=== PATIENT | female | born 1950 | race Two or more races ===

== ENCOUNTER 2018-05-01 06:00 | Day surgery (SDC) | payer OTHER ==
[~2018-05-01 06:00] MED LIST: DESILAN PO; JANUVIA100 MG PO; JARDIANCE PO; LYRICA300 MG PO; PNEU16DI2; SYNTTHROID PO
== END 2018-05-01 11:35 | disposition home or self-care (01) ==
LOC: CIR.AMB 06:00
DX: M75.121 Complete rotator cuff tear or rupture of right shoulder, not specified as traumatic (principal); M25.311 Other instability, right shoulder; M13.811 Other specified arthritis, right shoulder; S46.211A Strain of muscle, fascia and tendon of other parts of biceps, right arm, initial encounter

== ENCOUNTER 2020-09-22 05:56 | Day surgery (SDC) | payer OTHER | END 2020-09-22 11:05 | disposition home or self-care (01) | LOC: AMB-ENDOS 05:56 | PROVIDERS: ATTEND Surgery | DX: K62.89 Other specified diseases of anus and rectum (principal); D25.0 Submucous leiomyoma of uterus; K64.8 Other hemorrhoids; Z20.822 Contact with and (suspected) exposure to COVID-19 ==

== ENCOUNTER 2020-11-02 10:15 | Inpatient (IN) | payer OTHER ==
[~2020-11-02] VITALS: Ht 137.2 cm; Wt 57.2 kg
[2020-11-02] MEDS ORDERED: ENALAPRIL MALE2.5 MG PO (11:57)
[2020-11-02] MEDS ORDERED: DIAZEPAM10 MG PO (11:57)
[2020-11-10] MEDS ORDERED: CELECOXIB50 MG (08:48)
[2020-11-10] MEDS ORDERED: OMEPRAZOLE20 MG (08:49)
[2020-11-10] MEDS ORDERED: DEXILANT60 MG (08:49)
[2020-11-10] MEDS ORDERED: JARDIANCE10 MG (08:49)
[2020-11-10] MEDS ORDERED: SEMGLEE100 UNIT/1 (08:50)
[2020-11-10] MEDS ORDERED: IBANDRONATE SO150 MG (08:50)
[2020-11-10] MEDS ORDERED: SYNTHROID50 MCG (08:50)
[2020-11-10] MEDS ORDERED: ATORVASTATIN CA10 MG (08:50)
[2020-11-13] MEDS ORDERED: HYOSCYAMINE0.125 M1 SL (13:17)
[2020-11-13] MEDS ORDERED: OXYC1TAB9 PO (13:18)
== END 2020-11-13 13:18 | disposition home or self-care (01) | DRG 331 ==
LOC: O/R 11-09 09:25 → SURH 11-09 09:28
PROVIDERS: ADMIT Surgery; ATTEND Surgery
PROC: 0DTN0ZZ Resection of Sigmoid Colon, Open Approach (ICD-10-PCS; 2020-11-09)
PROC: 0DQP0ZZ Repair Rectum, Open Approach (ICD-10-PCS; 2020-11-09)
PROC: 0USG0ZZ Reposition Vagina, Open Approach (ICD-10-PCS; 2020-11-09)
PROC: 0DJD8ZZ Inspection of Lower Intestinal Tract, Via Natural or Artificial Opening Endoscopic (ICD-10-PCS; 2020-11-09)
PROC: 0DTP0ZZ Resection of Rectum, Open Approach (ICD-10-PCS; principal; 2020-11-09 15:15)
DX: K57.32 Diverticulitis of large intestine without perforation or abscess without bleeding (principal); R15.9 Full incontinence of feces; N81.6 Rectocele; K46.9 Unspecified abdominal hernia without obstruction or gangrene; E78.00 Pure hypercholesterolemia, unspecified; F41.9 Anxiety disorder, unspecified; Z20.822 Contact with and (suspected) exposure to COVID-19

== ENCOUNTER 2021-12-20 05:00 | Day surgery (SDC) | payer OTHER ==
[~2021-12-20] VITALS: Ht 152.4 cm; Wt 60.8 kg
[~2021-12-20 05:00] MED LIST changes: +ATORVASTATIN CA10 MG; +CELECOXIB50 MG; +DEXILANT60 MG; +DIAZEPAM10 MG PO; +ENALAPRIL MALE2.5 MG PO; +HYOSCYAMINE0.125 M1 SL; +IBANDRONATE SO150 MG; +JARDIANCE10 MG; +LANTUS; +OMEPRAZOLE20 MG; +OXYC1TAB9 PO; +SEMGLEE100 UNIT/1; +SYNTHROID50 MCG
[2021-12-20] MEDS ORDERED: CEPHALEXIN500 M1 PO (10:07)
[2021-12-20] MEDS ORDERED: ULTRAM50 MG PO (10:08)
== END 2021-12-20 11:50 | disposition home or self-care (01) ==
LOC: CIR.AMB 05:00
PROVIDERS: ATTEND Surgery
DX: R15.9 Full incontinence of feces (principal); Z88.2 Allergy status to sulfonamides; K57.30 Diverticulosis of large intestine without perforation or abscess without bleeding; Z20.822 Contact with and (suspected) exposure to COVID-19; Z91.011 Allergy to milk products; Z86.16 Personal history of COVID-19; E11.9 Type 2 diabetes mellitus without complications; E03.9 Hypothyroidism, unspecified; I87.2 Venous insufficiency (chronic) (peripheral)
CPT/HCPCS: 64581; 95971; C1778

== ENCOUNTER 2022-01-03 05:37 | Day surgery (SDC) | payer OTHER ==
[~2022-01-03] VITALS: Ht 144.8 cm; Wt 55.8 kg
[~2022-01-03 05:37] MED LIST changes: +CEPHALEXIN500 M1 PO; +ULTRAM50 MG PO
[2022-01-03] MEDS ORDERED: ULTRAM50 MG PO (07:58)
== END 2022-01-03 10:05 | disposition home or self-care (01) ==
LOC: CIR.AMB 05:37
PROVIDERS: ATTEND Surgery
DX: R15.9 Full incontinence of feces (principal); K57.30 Diverticulosis of large intestine without perforation or abscess without bleeding; Z20.822 Contact with and (suspected) exposure to COVID-19; Z88.2 Allergy status to sulfonamides
CPT/HCPCS: 64590; 95971; L8679

== ENCOUNTER 2022-06-12 07:26 | Day surgery (SDC) | payer OTHER ==
[~2022-06-12] VITALS: Ht 152.4 cm; Wt 56.2 kg
[~2022-06-12 07:26] MED LIST changes: +DEXILANT60 MG PO; +DICY20TA PO; +LANTUS SOL100 UNIT/1; +LYRICA200 MG PO
== END 2022-06-12 10:10 | disposition home or self-care (01) ==
LOC: CIR.AMB 07:26
PROVIDERS: ATTEND Orthopaedic Surgery Hand Surgery
DX: G56.01 Carpal tunnel syndrome, right upper limb (principal); R22.31 Localized swelling, mass and lump, right upper limb; Z88.2 Allergy status to sulfonamides; Z91.011 Allergy to milk products; Z20.822 Contact with and (suspected) exposure to COVID-19; E78.00 Pure hypercholesterolemia, unspecified; E11.9 Type 2 diabetes mellitus without complications; Z79.4 Long term (current) use of insulin; E03.9 Hypothyroidism, unspecified

== ENCOUNTER → 2023-01-14 | Day surgery (SDC) | payer OTHER ==
[~2023-01-14] VITALS: Ht 152.4 cm; Wt 54.0 kg
[~2023-01-14] MED LIST changes: +TRAM1TAB98 PO
[2023-01-14 08:07] LABS: HEMATOCRIT 48.6 % (36.0-45.00); HEMOGLOBIN 16.1 g/dL (12.0-15.00); MEAN CELL VOLUME 92.1 fL (80.00-100.00); MEAN CORPUSCULAR HEMOGLOBIN 30.6 pg (27.00-32.0); MEAN CORPUSCULAR HGB CONC 33.2 g/dl (32.0-36.0); PLATELET COUNT 258 K/uL (150-450); RED BLOOD COUNT 5.28 M/uL (4.00-6.00); RED CELL DISTRIBUTION WIDTH 13.2 % (11.5-14.5)
[2023-01-14 09:09] LABS: ALBUMIN 4.8 gm/dL (3.4-5.0); BILIRUBIN TOTAL 0.41 mg/dL (0.3-1.2); CALCIUM 9.4 mg/dL (8.5-10.1); CREATININE SERUM 0.98 mg/dL (0.55-1.02); GFR 55.48; GLOBULINA 4.8 G/DL (2.4-3.5); POTASSIUM 3.91 mEq/L (3.5-5.1); TOTAL PROTEIN 9.6 gm/dL (6.4-8.2)
[2023-01-14 13:33] LABS: RH POSITIVE
== END | disposition home or self-care (01) ==
LOC: ER 06:41 → EDSTATUS 06:41 → ER 06:49 → CIR.AMB 10:06 → O/R 10:06 → CIR.AMB 10:06 → ER 10:06 → SEC-K 10:06 → O/R 13:01
PROVIDERS: Surgery; ATTEND Emergency Medicine
DX: R15.9 Full incontinence of feces (principal); R10.2 Pelvic and perineal pain; Z20.822 Contact with and (suspected) exposure to COVID-19; Z88.2 Allergy status to sulfonamides; I10 Essential (primary) hypertension

== ENCOUNTER 2024-11-10 05:15 | Day surgery (SDC) | payer OTHER ==
[2024-11-04 08:22] LABS: BASO % 0.3 % (0.1-1.2); EOS # 0.18 (0.04-0.54); EOS % 2.5 % (0.7-7.0); LYMPH # 2.22 (1.18-3.74); LYMPH % 31.4 % (19.3-53.1); MEAN PLATELET VOLUME 12.30 fl (9.4-12.4); MONO # 0.75 (0.24-0.82); MONO % 10.6 % (4.7-12.5); NEUT # 3.88 (1.56-6.13); NEUT % 55.1 % (34.0-71.1); RED CELL DISTRIBUTION WIDTH 13.0 % (11.6-14.4)
[2024-11-04 08:24] LABS: URINE APPEARANCE Clear; URINE BILIRRUBIN Negative (NEGATIVE); URINE BLOOD Negative; URINE COLOR Yellow; URINE KETONE Negative (NEGATIVE); URINE LEUKOCYTE Negative; URINE NITRATE Negative; URINE PROTEIN Negative (NEGATIVE); URINE UROBILINOGEN 0.2 E.U./dl
[2024-11-04 08:29] VITALS: BP 148/79
[2024-11-04 08:31] LABS: URINE EPITHELIAL CELLS 1.0 uL (0.0-38.8); URINE GLUCOSE 500 MG/DL (NEGATIVE); URINE RBC 1.3 uL (0.0-20.8); URINE WBC 1.3 uL (0.0-23.2)
[2024-11-04 08:32] LABS: URINE BACTERIA 1.2 uL (0.0-1933); URINE CAST 0.00 uL (0.0-1.40)
[2024-11-04 08:56] LABS: ALT/SGPT 53.0 U/L (12-78); AST/SGOT 48.0 U/L (15-37); BILIRUBIN TOTAL 0.45 mg/dL (0.3-1.2); BUN CREA RATIO 21.0 (7.0-25.0); CREATININE SERUM 0.86 mg/dL (0.55-1.02); GFR 64.15; GLOBULINA 3.3 G/DL (2.4-3.5); GLUCOSE FASTING 88.0 mg/dL (65-100); OSMOLALITY SERUM 288.0 MOSM/KG (275-295)
[2024-11-04 10:30] LABS: INR 1.11
[~2024-11-10] VITALS: Ht 152.4 cm; Wt 56.7 kg
[2024-11-10] MEDS ORDERED: BUPIVACAINE HCL 30 ML VIAL IJ ONE (08:15)
[2024-11-10] MEDS ORDERED: ISOPROPYL ALCOHOL 30 ML OUNCE TOP ONE (08:15)
== END 2024-11-10 10:45 | disposition home or self-care (01) ==
LOC: CIR.AMB 05:15
PROVIDERS: ATTEND Orthopaedic Surgery Hand Surgery
DX: M65.311 Trigger thumb, right thumb (principal); Z88.2 Allergy status to sulfonamides; Z91.011 Allergy to milk products